=== PATIENT | male | born 1940 | race Caucasian/White ===

== ENCOUNTER 2023-02-23 20:15 | Emergency (ER) | payer MEDICAID, MEDICARE ==
[~2023-02-23] VITALS: Ht 170.2 cm; Wt 73.0 kg
[2023-02-23] MEDS ORDERED: CETI5TAB14 PO (20:37)
[2023-02-23] MEDS ORDERED: INSU100V52 (20:37)
[2023-02-23] MEDS ORDERED: ATOR40TA71 PO (20:37)
[2023-02-23] MEDS ORDERED: LOPE2TAB26 PO (20:37)
[2023-02-23] MEDS ORDERED: METO25 PO (20:37)
[2023-02-23 20:41] LABS: GLUCOMETER DEV NAME(LOC) ERT.5; GLUCOSE,POINT OF CARE 170 MG/DL (70-110)
[2023-02-23 22:14] LABS: BASOPHILS % (AUTO) 1.4 % (0.0-2.0); EOSINOPHILS % (AUTO) 3.8 % (1.0-6.0); HEMATOCRIT 37.9 % (41-53); HEMOGLOBIN 12.3 g/dL (13.5-17.5); LYMPHOCYTES # (AUTO) 1.7 K/uL (1.0-4.8); LYMPHOCYTES % (AUTO) 17.7 % (22.0-44.0); MEAN CORPUSCULAR HEMOGLOBIN 29.7 pg (26.0-34.0); MEAN CORPUSCULAR HGB CONC 32.4 G/dL (31.0-37.0); MEAN CORPUSCULAR VOLUME 92 fL (80-100); MONOCYTES # (AUTO) 0.7 K/uL (0.1-1.0); MONOCYTES % (AUTO) 7.8 % (2.0-9.0); NEUTROPHILS # (AUTO) 6.6 K/uL (1.8-7.7); NEUTROPHILS % (AUTO) 69.3 % (40.0-70.0); PLATELET COUNT (AUTO) 185 K/uL (150-450); RED BLOOD CELL COUNT(AUTO) 4.14 MIL/uL (4.50-5.90); RED CELL DISTRIBUTION WIDTH 14.7 % (11.5-14.5)
[2023-02-23 22:23] LABS: CREATININE 2.87 mg/dL (0.60-1.30); POTASSIUM 4.5 mmol/L (3.5-5.1)
[2023-02-23 22:48] LABS: ALBUMIN 3.3 g/dL (3.4-5.0); BILIRUBIN,TOTAL 0.2 mg/dL (0.1-1.0); TOTAL PROTEIN, SERUM 6.6 g/dL (6.4-8.2)
[2023-02-23 23:40] VITALS: BP 167/91
[2023-02-24] MEDS ORDERED: LORazepam 2 MG/ML VIAL IM ONE ×2 (00:30→01:15)
[2023-02-24] MEDS ORDERED: LORazepam 2 MG/ML VIAL ONE (00:33)
[2023-02-24 01:04] LABS: APPEARANCE,URINE CLEAR (CLEAR); BILIRUBIN,URINE NEGATIVE (NEGATIVE); GLUCOSE, URINE (UA) 70-100 mg/dL (NEGATIVE); KETONES,URINE NEGATIVE (NEGATIVE); LEUKOCYTE ESTERASE ,URINE NEGATIVE (NEGATIVE); NITRATE,URINE NEGATIVE (NEGATIVE); OCCULT BLOOD,URINE TRACE (NEGATIVE); PH,URINE 5.5 (5.0-8.0); PROTEIN,URINE 30-70 mg/dL (NEGATIVE); SPECIFIC GRAVITIY, URINE 1.015 (1.003-1.030); UROBILINOGEN,URINE <=1.0 mg/dL (<=1.0)
[2023-02-24 01:15] LABS: BACTERIA,URINE None Seen /HPF (None Seen); SQUAMOUS EPITHELIAL CELL,UR None Seen /LPF (None Seen); WBC,URINE None Seen /HPF (0-5)
== END 2023-02-24 01:19 | disposition home or self-care (01) ==
LOC: EMS 20:17
DX: R55 Syncope and collapse (principal); F32.A Depression, unspecified; E11.9 Type 2 diabetes mellitus without complications; Z96.651 Presence of right artificial knee joint
CPT/HCPCS: 99285; 70450; 71045; 80053; 81001; 82550; 82962; 83880; 84484; 85025; 36415; 93005; 96372; J2060